=== PATIENT | male | born 1980 | race Two or more races ===

== ENCOUNTER → 2024-12-19 | Outpatient (BNVA) | payer BC, MEDICAID, SELFPAY | END | disposition home or self-care (01) | PROVIDERS: PCP Internal Medicine; Referring Provider Internal Medicine; Visit Provider Urology | DX: N40.1 Benign prostatic hyperplasia with lower urinary tract symptoms (principal); N13.8 Other obstructive and reflux uropathy; R39.198 Other difficulties with micturition; R31.29 Other microscopic hematuria; Z80.42 Family history of malignant neoplasm of prostate; E66.9 Obesity, unspecified; Z68.32 Body mass index [BMI] 32.0-32.9, adult | CPT/HCPCS: 81003; 99212; G0463 ==

== ENCOUNTER → 2024-12-28 | Outpatient (CLI) | payer BC, SELFPAY ==
[2024-12-28 10:07] LABS: Collection Type, Urine Clean Catch
[2024-12-28 10:30] LABS: Basophils % (Auto) 1 % (0-2.5); Eosinophils # (Auto) 0.2 Thou/mm3 (0.0-0.5); Eosinophils % (Auto) 2 % (0-10); Hematocrit 48.2 % (41.0-53.0); Hemoglobin 15.9 g/dL (13.5-16.0); Immature Granulocytes % (Auto) 0 % (0-0); Immature Granulocytes Auto 0.01 Thou/mm3 (0.00-0.00); Lymphocytes % (Auto) 31 % (10-50); Mean Corpuscular Hemoglobin 27.5 pg (25.0-35.0); Mean Corpuscular Volume 83 fL (80-100); Monocytes # (Auto) 0.5 Thou/mm3 (0.0-0.8); Monocytes % (Auto) 7 % (0-12); Neutrophils # (Auto) 3.9 Thou/mm3 (1.8-7.7); Neutrophils % (Auto) 59 % (37-80); Nucleated Red Blood Cell % 0 /100 WBC (0); Platelet Count 199 Thou/mm3 (140-440); RDW Standard Deviation 41.3 fL (35.1-43.9); Red Blood Count 5.78 Miln/mm3 (4.50-5.90); White Blood Count 6.5 Thou/mm3 (3.8-10.6)
[2024-12-28 10:34] LABS: Bilirubin,Urine Negative (Negative); Blood,Urine 1+ (Negative); Clarity,Urine Clear (Clear/Hazy); Color,Urine Yellow (Lt Yel-Yel); Glucose, Urine Negative (Negative); Ketones,Urine Negative (Negative); Leukocyte Esterase,Urine Negative (Negative); Nitrite,Urine Negative (Negative); PH,Urine 5.5 (5.0-7.0); Protein,Urine 1+ (Neg - Trace); RBC,Urine 5 /hpf (0-3); Specific Gravity,Urine 1.028 (1.001-1.035); Squamous Epithelial Cell,Urine < 1 /hpf (0-5); Urobilinogen,Urine Negative mg/dL (0.0-1.0); WBC,Urine 1 /hpf (0-5)
[2024-12-28 10:43] LABS: Alanine Aminotransferase 60 U/L (10-49); Albumin, Serum 4.5 gm/dL (3.5-5.0); Alkaline Phosphatase 72 U/L (46-116); Anion Gap 6 (7-16); Aspartate Amino Transferase 32 U/L (0-34); BUN/Creatinine Ratio 17 Ratio (12-20); Bilirubin,Total 0.7 mg/dL (0.3-1.2); Blood Urea Nitrogen 17 mg/dL (9-23); Calcium 9.5 mg/dL (8.3-10.6); Calcium (Corrected) 9.5 mg/dL (8.5-10.1); Carbon Dioxide 28.9 mMol/L (20.0-31.0); Cardiac Risk Estimate 3.3 RATIO (4.0-6.7); Chloride 107 mMol/L (98-107); Cholesterol 127 mg/dL (132-200); Globulin 2.3 gm/dL (2.3-3.5); Glucose 111 mg/dL (74-106); HDL Cholesterol 39 mg/dL (40-60); LDL Cholesterol,Calculated 71 mg/dL (0-130); Osmolality,Calculated 285 (275-295); Potassium 4.8 mMol/L (3.4-5.1); Sodium 142 mMol/L (136-145); Thyroid Stimulating Hormone 0.79 uIU/mL (0.55-4.78); Total Protein 6.8 gm/dL (5.7-8.2); Triglycerides 86 mg/dL (30-150); Uric Acid 6.7 mg/dL (3.7-9.2); eGFR > 60 See Note
[2024-12-28 10:45] LABS: Vitamin B12 465 pg/mL (211-911); Vitamin D 25 Hydroxy Total 23.8 ng/mL (7.3-40.2)
[2024-12-28 10:58] LABS: Creatinine MALB Rnd Ur 226 mg/dL (30-125); Microalbumin Creat Ratio 116 mg/gCrea (<30); Microalbumin, Random Urine 263 mg/L (0-300)
== END | disposition home or self-care (01) ==
PROVIDERS: PCP Internal Medicine; Referring Provider Internal Medicine; Visit Provider Internal Medicine
DX: I10 Essential (primary) hypertension (principal); R31.21 Asymptomatic microscopic hematuria; R80.1 Persistent proteinuria, unspecified
CPT/HCPCS: 36415; 80053; 80061; 81001; 82043; 82306; 82570; 82607; 84153; 84443; 84550; 85025

== ENCOUNTER → 2025-01-09 | Outpatient (CLI) | payer BC, SELFPAY ==
[2025-01-09 12:13] LABS: Syphilis Nonreactive (Nonreactive)
[2025-01-09 15:15] LABS: Chlamydia trachomatis PCR Negative (Not Detect); Neisseria Gonorrhoeae DNA PCR Negative (Not Detect); Trichomonas Negative (Negative)
[2025-01-15 06:49] LABS: HSV2 IgG Type Specific Ab <0.90 INDEX; Testosterone, Free,Dialysis 69.6 pg/mL (35.0-155.0); Testosterone, Total, Dialysis 466 ng/dL (250-1100)
== END | disposition home or self-care (01) ==
LOC: COPL 10:25
PROVIDERS: PCP Internal Medicine; Referring Provider Internal Medicine; Visit Provider Internal Medicine
DX: Z11.3 Encounter for screening for infections with a predominantly sexual mode of transmission (principal); R80.1 Persistent proteinuria, unspecified; R31.21 Asymptomatic microscopic hematuria
CPT/HCPCS: 36415; 84402; 84403; 86695; 86696; 86780; 87491; 87591; 87661

== ENCOUNTER → 2025-01-10 | Outpatient (CLI) | payer BC, SELFPAY ==
[2025-01-10 16:52] LABS: Protein Total, Urine Volume 1500 mL/24hr (600-1800)
[2025-01-10 16:57] LABS: Protein Total, 24 hr Urine 570 mg/24hr (<149); Protein Total, Urine 38 mg/dL (1-14)
== END | disposition home or self-care (01) ==
LOC: SLDO 16:11
PROVIDERS: PCP Internal Medicine; Referring Provider Internal Medicine; Visit Provider Internal Medicine
DX: Z11.3 Encounter for screening for infections with a predominantly sexual mode of transmission (principal); R80.1 Persistent proteinuria, unspecified; R31.21 Asymptomatic microscopic hematuria
CPT/HCPCS: 84156

== ENCOUNTER 2025-03-27 07:34 | Outpatient (CLI) | payer BC, SELFPAY ==
[2025-03-26 17:43] LABS: Basophils # (Auto) 0.1 Thou/mm3 (0.0-0.2); Basophils % (Auto) 1 % (0-2.5); Eosinophils # (Auto) 0.3 Thou/mm3 (0.0-0.5); Eosinophils % (Auto) 4 % (0-10); Hematocrit 47.6 % (41.0-53.0); Hemoglobin 15.9 g/dL (13.5-16.0); Immature Granulocytes % (Auto) 0 % (0-0); Immature Granulocytes Auto 0.03 Thou/mm3 (0.00-0.00); Lymphocytes % (Auto) 36 % (10-50); Mean Corpuscular HGB Conc 33.4 g/dl (31.0-37.0); Mean Corpuscular Hemoglobin 27.8 pg (25.0-35.0); Mean Corpuscular Volume 83 fL (80-100); Monocytes # (Auto) 0.7 Thou/mm3 (0.0-0.8); Monocytes % (Auto) 9 % (0-12); Neutrophils # (Auto) 4.2 Thou/mm3 (1.8-7.7); Neutrophils % (Auto) 51 % (37-80); Nucleated Red Blood Cell % 0 /100 WBC (0); Platelet Count 212 Thou/mm3 (140-440); RDW Standard Deviation 41.8 fL (35.1-43.9); Red Blood Count 5.72 Miln/mm3 (4.50-5.90); White Blood Count 8.4 Thou/mm3 (3.8-10.6)
[2025-03-26 17:59] LABS: INR 1.1 (0.9-1.3); Partial Thromboplastin Time 31.2 Seconds (22.0-36.0); Prothrombin Time 11.6 Seconds (9.0-12.2)
[2025-03-26 18:07] LABS: Blood Urea Nitrogen 17 mg/dL (9-23); eGFR > 60 See Note
[2025-03-27 07:52] VITALS: BP 141/90; PULSE 71; RESP 14; TEMP 36.9; O2SAT 97
[2025-03-27 08:11] VITALS: BMI 32.3
--- NOTE | 2025-03-27 08:30 | XR_ITS ---
Examination: CT-guided medical renal biopsy percutaneous lower pole left kidney CT abdomen without intravenous contrast Date and time of procedure: March 27, 2025 0942 hours INDICATIONS: Persistent proteinuria months Informed consent provided. A timeout was completed verifying correct patient, procedure, site and positioning. Technique: Axial 3 mm sections were obtained for localization of the lower pole left kidney Appropriate area is marked. The patient's site was prepped and draped in sterile fashion Maximal sterile barrier technique utilized, including hand hygiene Local anesthesia was obtained with 1% lidocaine. Low dose protocols were performed. One or more of the following dose reduction techniques were used; automated exposure control, adjustment of the mA and/or KV according to patient size, use of iterative reconstruction technique. Utilizing CT fluoroscopic guidance 2 core biopsies obtained of the lower pole left kidney . Patient appears in stable condition during this procedure. At completion of the procedure, the patient is in satisfactory condition. Estimated blood loss 2 cc Complete pathology report to follow. Impression: Successful CT-guided percutaneous medical renal biopsy lower pole left kidney
[2025-03-27 10:00] VITALS: BP 143/97; PULSE 68; RESP 12; O2SAT 98
[2025-03-27] MEDS: fentaNYL CIT INJ 50 mCg/ML AMP 2ML 75 MCG IVP (10:01)
[2025-03-27 10:10] VITALS: BP 152/100; PULSE 74; RESP 18; O2SAT 100
[2025-03-27 10:15] VITALS: BP 126/90; PULSE 65; RESP 14; TEMP 36.6; O2SAT 94
[2025-03-27 10:30] VITALS: BP 131/90; PULSE 61; RESP 13; O2SAT 96
[2025-03-27 10:45] VITALS: BP 135/93; PULSE 66; RESP 15; O2SAT 96
== END 2025-03-27 11:00 | disposition home or self-care (01) ==
PROVIDERS: Radiology Diagnostic Radiology; PCP Internal Medicine; Referring Provider Internal Medicine; Visit Provider Internal Medicine
DX: N28.9 Disorder of kidney and ureter, unspecified (principal); I12.9 Hypertensive chronic kidney disease with stage 1 through stage 4 chronic kidney disease, or unspecified chronic kidney disease; Z01.812 Encounter for preprocedural laboratory examination
CPT/HCPCS: 50200; 36415; 77012; 82565; 84520; 85025; 85610; 85730; J3010

== ENCOUNTER → 2025-09-25 | Outpatient (BNVA) | payer BC, SELFPAY | END | disposition home or self-care (01) | PROVIDERS: PCP Internal Medicine; Referring Provider Internal Medicine; Visit Provider Physician Assistant | DX: N40.1 Benign prostatic hyperplasia with lower urinary tract symptoms (principal); Z80.42 Family history of malignant neoplasm of prostate | CPT/HCPCS: Q3014 ==

== ENCOUNTER → 2025-10-09 | Outpatient (CLI) | payer BC, SELFPAY ==
--- NOTE | 2025-10-09 14:00 | XR_ITS ---
EXAMINATION: Testicular sonography complete TECHNIQUE: Grayscale sonographic images testes, assessment arterial inflow and venous outflow Doppler spectral analysis color flow analysis Date and time: October 09, 2025, 1428 hours, comparison July 08, 2023 INDICATIONS: Testicular pain 15 years postvasectomy 15 years ago FINDINGS: Right testis 4.6 cm epididymis 16 mm Arterial flow the testicle. No testicular mass Mild varicocele Mild hydrocele Left testis 4.4 cm epididymis 13 mm Arterial flow is testicle. No testicular mass Mild septated hydrocele Moderate varicocele IMPRESSION: No testicular torsion or testicular mass Mild right moderate left varicoceles
[2025-10-09 15:27] LABS: Collection Type, Urine Clean Catch; Squamous Epithelial Cell,Urine 0 /hpf (0-5)
[2025-10-09 15:46] LABS: Bilirubin,Urine Negative (Negative); Blood,Urine 1+ (Negative); Clarity,Urine Clear (Clear/Hazy); Color,Urine Lt-Yellow (Lt Yel-Yel); Glucose, Urine 1+ (Negative); Ketones,Urine Trace (Negative); Leukocyte Esterase,Urine Negative (Negative); Nitrite,Urine Negative (Negative); PH,Urine 5.5 (5.0-7.0); Protein,Urine 1+ (Neg - Trace); RBC,Urine 2 /hpf (0-3); Specific Gravity,Urine 1.022 (1.001-1.035); Urobilinogen,Urine Negative mg/dL (0.0-1.0); WBC,Urine 1 /hpf (0-5)
[2025-10-09 16:11] LABS: Prostate Specific Antigen 0.93 ng/mL (0-4.00)
== END | disposition home or self-care (01) ==
LOC: CDIM 14:12 → COPL 14:50
PROVIDERS: PCP Internal Medicine; Referring Provider Urology; Visit Provider Radiology Diagnostic Radiology
DX: I86.1 Scrotal varices (principal); N40.0 Benign prostatic hyperplasia without lower urinary tract symptoms
CPT/HCPCS: 36415; 76870; 81001; 84153; 87086